=== PATIENT | male | born 1985 | race Caucasian/White ===

== ENCOUNTER 2023-06-09 17:42 | Inpatient (IN) ==
[2023-06-09] MEDS ORDERED: cloNIDine HCL 0.1 MG TAB PO ONE (18:17)
[2023-06-09] MEDS ORDERED: CEROVITE ADV FORMULA TAB PO STA (18:17)
[2023-06-09] MEDS ORDERED: THIAMINE HCL 100 MG, FOLIC ACID 1 MG in SODIUM CHLORIDE 0.9% 1000ML 1,000 ML IV STA (18:17)
[2023-06-09] MEDS ORDERED: ONDANSETRON INJ 2 MG/ML 2 ML VIAL IV STA (18:17)
[2023-06-09] MEDS ORDERED: PROMETHAZINE 12.5 MG/50.5 ML BAG IV STA (18:17)
[2023-06-09] MEDS ORDERED: SODIUM CHLORIDE 0.9% 1000ML 500 ML IV ONE (18:17)
--- NOTE | 2023-06-09 18:25 | Emergency Department Note ---
Impression & Plan Acute narcotic withdrawal, Leukocytosis, Acute dehydration ED Provider Note NAME: MINDY WAGNER AGE: 37 SEX: M : 1985 ARRIVES VIA: Ambulance INFORMANT: [Patient][ems] ED PROVIDER(S): [Jose Manuel Carson MD] CHIEF COMPLAINT: Detox request HISTORY OF PRESENT ILLNESS: The patient is a 37-year-old male with a history of heroin abuse. He has been using heroin almost daily for the last year. He last used 2 days ago and now feels he is suffering from some withdrawal. He has had body aching, nausea, he feels on edge. He is yawning. He has gone through withdrawal before. The patient feels dehydrated. He feels shaky. He would like some help with symptoms. There has been no cough or cold or congestion. No fever or chills. No urinary complaints. The patient states that he does have a history of high blood pressure but has not taken his medication in some time. The patient has been to rehab before, he was clean for 8 years but has relapsed. Of note, the patient does not want to be transferred to rehab today. He just wants help with his current symptoms. PMHx/PSHx: See Below SOCIAL HISTORY: See Below. PHYSICAL EXAM: GENERAL: Patient is in no acute distress. Yawning. HEENT: No acute trauma, normocephalic atraumatic, mucous membranes moist, no nasal congestion. NECK: No stridor, no adenopathy, no meningismus, trachea is midline. LUNGS: Clear to auscultation bilaterally, no wheeze, no rhonchi, breath sounds equal. HEART: Without murmurs gallops or rubs, regular rate and rhythm. ABDOMEN: Soft, nontender, bowel sounds positive, no peritonitis. EXTREMITIES: No cyanosis or edema, full range of motion of all the joints without pain or difficulty, no signs for acute trauma. NEUROLOGIC: Oriented x 3, no acute motor or sensory deficits, no focal weakness. SKIN: No rash, no jaundice, no diaphoresis. DIFFERENTIAL DIAGNOSIS: Narcotic withdrawal, dehydration, alcohol abuse, illicit drug abuse, renal or liver failure, UTI, among others. EMERGENCY DEPARTMENT COURSE/PROCEDURES: Prior/Outside records reviewed: EMS notes. ECG per my interpretation: Indication was withdrawal. The ECG shows a normal sinus rhythm with a rate of 78. There is no ST elevation, no PVCs. The QTc is 465. Continuous Cardiac Monitoring per my interpretation: An order was placed for continuous cardiac monitoring. The monitor shows a rate of 80 with normal sinus rhythm. MEDICAL DECISION MAKING: There is a mild leukocytosis, this could be consistent with the stress of his presentation or potentially infection. A very mild anemia was seen. Platelet count slightly elevated. No renal failure or significant electrolyte abnormality. No concerning liver enzyme elevation. TSH was low however, the T4 was normal. Alcohol level was undetectable. COVID test returned negative. ECG showed a normal sinus rhythm, no ischemia or dysrhythmia. On exam, the patient was yawning and complaining of body aches. He was suffering from narcotic withdrawal. The patient was given IV saline, 500 cc. He was given IV saline with multivitamins, thiamine and folate. He received IV Phenergan, IV Zofran, IV Toradol and IV Tylenol. He was given oral clonidine. He eventually was given a dose of IV Valium. The patient is still symptomatic and does not feel he can go home. He would like to stay in the hospital for his detox. This sounds reasonable given his presentation and the amount of medication it has taken to get him at least somewhat improved. I spoke with the patient and case management, the on-call hospitalist was consulted. DISPOSITION: Patient presentation and findings warrant a hospital stay. Past Med/Surg History Medical History Hypertension Narcotic abuse Social History Smoking Status: Current every day smoker Tobacco Type: Cigarettes Hx Substance Use: Yes Preferred Language: Uzbek Feels Safe at Home: Yes Allergies Allergies Allergy/AdvReac Type Severity Reaction Status Date / Time No Known Allergies Allergy Verified 06/09/23 18:28 Home Meds Home Medications Medication Instructions Recorded Confirmed zfyqlawbhb-EP-OY-acetaminophen 0 ml PO DIRECTED PRN Cold 06/09/23 06/09/23 6.25 mg-5 mg-10 mg-325mg/15mL oral Symptoms liqd (Vicks NyQuil Severe Cold-Flu) Results & Data (ED) Vital Signs Vital Signs - 24 hr 06/09/23 17:49 06/09/23 17:36 06/09/23 17:36 Pulse Rate 80 82 Pulse Rate from SpO2 Sensor Respiratory Rate 20 20 Blood Pressure 137/87 Blood Pressure Mean 103 Pulse Oximetry 97 100 Oxygen Delivery Method Room Air Sepsis Recent Fever Within 48 Hours No Sepsis New/Unexplained Change in Mental Status No Sepsis Action Taken by Nursing No Action Required 06/09/23 18:00 06/09/23 19:00 06/09/23 19:53 Pulse Rate 76 74 65 Pulse Rate from SpO2 Sensor 76 74 Respiratory Rate 33 H 22 16 Blood Pressure 137/87 147/88 H Blood Pressure Mean 103 107 Pulse Oximetry 99 98 Oxygen Delivery Method Sepsis Recent Fever Within 48 Hours Sepsis New/Unexplained Change in Mental Status Sepsis Action Taken by Nursing 06/09/23 20:00 06/09/23 20:11 06/09/23 21:59 Pulse Rate 72 59 L Pulse Rate from SpO2 Sensor Respiratory Rate Blood Pressure 152/95 H Blood Pressure Mean 117 Pulse Oximetry Oxygen Delivery Method Sepsis Recent Fever Within 48 Hours Sepsis New/Unexplained Change in Mental Status Sepsis Action Taken by Group Home Medications Current Medication List: was personally reviewed by me Laboratory Data Attestation: I reviewed the patient's lab results. 06/09/23 18:23 06/09/23 18:23 Lab Results 06/09/23 06/09/23 06/09/23 Range/Units 18:23 18:23 18:23 WBC 13.29 H (4.8-10.8) K/ul RBC 4.60 L (4.70-6.10) M/uL Hgb 13.8 L (14.0-18.0) g/dl Hct 40.6 L (42.0-52.0) % MCV 88.3 (80.0-100.0) fL MCH 30.0 (25.0-34.0) pg MCHC 34.0 (32.0-36.0) g/dL RDW Std Deviation 42.5 (36.4-46.3) fL RDW Coeff of Terri 13.1 (11.5-14.5) % Plt Count 440 H (130-400) K/uL MPV 9.4 (9.4-12.4) fL Immature Gran % (Auto) 0.2 % Neut % (Auto) 80.6 % Lymph % (Auto) 12.6 % [place] % (Auto) 5.9 % Eos % (Auto) 0.2 % Baso % (Auto) 0.5 % Neut # (Auto) 10.71 H (1.40-6.50) K/uL Lymph # (Auto) 1.68 (1.2-3.4) K/uL [place] # (Auto) 0.79 H (0.11-0.59) K/uL Eos # (Auto) 0.02 (0-0.50) K/uL Baso # (Auto) 0.06 (0-0.2) K/uL Immature Gran # (Auto) 0.03 (0.01-0.20) K/uL Sodium 142 (136-145) mmol/L Potassium 3.7 (3.5-5.1) mmol/L Chloride 107 (98-107) mmol/L Carbon Dioxide 25 (21-32) mmol/L Anion Gap 10 (3-11) BUN 9 (6-23) mg/dl Creatinine 0.78 (0.6-1.4) mg/dl Est Cr Clr Drug Dosing 129.7 ml/min Est GFR ( Amer) 133.7 ml/min Est GFR (Non-Af Amer) 115.3 ml/min BUN/Creatinine Ratio 11.5 (10-20) Glucose 78 (70-99(Fasting)) mg/dl Calcium 9.2 (8.6-10.3) mg/dl Magnesium 2.2 (1.7-2.4) mg/dl Total Bilirubin 0.5 (0.2-1.0) mg/dl AST 17 (13-39) U/L ALT 16 (7-52) U/L Alkaline Phosphatase 71 (34-104) U/L Total Protein 7.7 (6.0-8.3) gm/dl Albumin 4.5 (3.4-5.0) gm/dl Globulin 3.2 (2.5-4.0) gm/dl Albumin/Globulin Ratio 1.4 (0.9-2) TSH 0.256 L (0.300-4.500) uIu/ml Free T4 0.73 (0.61-1.60) ng/dl Ethyl Alcohol mg/dL (<10.0) mg/dl SARS-CoV-2, RNA, NAAT (NEGATIVE) 07/12/23 07/12/23 Range/Units 18:23 21:00 WBC (4.8-10.8) K/ul RBC (4.70-6.10) M/uL Hgb (14.0-18.0) g/dl Hct (42.0-52.0) % MCV (80.0-100.0) fL MCH (25.0-34.0) pg MCHC (32.0-36.0) g/dL RDW Std Deviation (36.4-46.3) fL RDW Coeff of Terri (11.5-14.5) % Plt Count (130-400) K/uL MPV (9.4-12.4) fL Immature Gran % (Auto) % Neut % (Auto) % Lymph % (Auto) % [place] % (Auto) % Eos % (Auto) % Baso % (Auto) % Neut # (Auto) (1.40-6.50) K/uL Lymph # (Auto) (1.2-3.4) K/uL [place] # (Auto) (0.11-0.59) K/uL Eos # (Auto) (0-0.50) K/uL Baso # (Auto) (0-0.2) K/uL Immature Gran # (Auto) (0.01-0.20) K/uL Sodium (136-145) mmol/L Potassium (3.5-5.1) mmol/L Chloride (98-107) mmol/L Carbon Dioxide (21-32) mmol/L Anion Gap (3-11) BUN (6-23) mg/dl Creatinine (0.6-1.4) mg/dl Est Cr Clr Drug Dosing ml/min Est GFR ( Amer) ml/min Est GFR (Non-Af Amer) ml/min BUN/Creatinine Ratio (10-20) Glucose (70-99(Fasting)) mg/dl Calcium (8.6-10.3) mg/dl Magnesium (1.7-2.4) mg/dl Total Bilirubin (0.2-1.0) mg/dl AST (13-39) U/L ALT (7-52) U/L Alkaline Phosphatase (34-104) U/L Total Protein (6.0-8.3) gm/dl Albumin (3.4-5.0) gm/dl Globulin (2.5-4.0) gm/dl Albumin/Globulin Ratio (0.9-2) TSH (0.300-4.500) uIu/ml Free T4 (0.61-1.60) ng/dl Ethyl Alcohol mg/dL < 10.0 (<10.0) mg/dl SARS-CoV-2, RNA, NAAT NEGATIVE (NEGATIVE) Administered Medications Discontinued Medications Clonidine HCl (Clonidine Hcl 0.1 Mg Tab) 0.2 mg PO NOW ONE Stop: 06/09/23 18:18 Last Admin: 06/09/23 19:11 Dose: 0.2 mg Documented By: YVETTE Diazepam (Diazepam 5 Mg/Ml Inj 10ml Vial) 5 mg IV NOW STA Stop: 06/09/23 20:46 Last Admin: 06/09/23 20:59 Dose: 5 mg Documented By: VANE Sodium Chloride (Nss 1000ml) 500 mls @ 999 mls/hr IV .Q31M ONE Stop: 06/09/23 18:47 Last Infusion: 06/09/23 20:20 Dose: 0 mls/hr Documented By: Admin: 06/09/23 19:09 Dose: 999 mls/hr Documented By: YVETTE Thiamine HCl 100 mg/ Folic (Acid 1 mg/ Sodium Chloride) 1,001.2 mls @ 500 mls/hr IV .Q2H1M STA; Protocol Stop: 06/09/23 20:17 Last Infusion: 06/09/23 22:08 Dose: 0 mls/hr Documented By: Admin: 06/09/23 19:24 Dose: 500 mls/hr Documented By: VANE Promethazine HCl (Phenergan) 12.5 mg in 50.5 mls @ 202 mls/hr IV NOW STA Stop: 06/09/23 18:31 Last Infusion: 06/09/23 19:32 Dose: 0 mls/hr Documented By: Admin: 06/09/23 19:10 Dose: 202 mls/hr Documented By: YVETTE Acetaminophen (Ofirmev) 1,000 mg in 100 mls @ 400 mls/hr IV NOW STA Stop: 06/09/23 20:59 Last Infusion: 06/09/23 22:07 Dose: 0 mls/hr Documented By: Admin: 06/09/23 21:00 Dose: 400 mls/hr Documented By: VANE Ketorolac Tromethamine (Ketorolac Tromethamine 15 Mg/Ml Vial) 15 mg IV NOW STA Stop: 06/09/23 20:46 Last Admin: 06/09/23 20:59 Dose: 15 mg Documented By: VANE Multivitamins/Minerals (Cerovite Adv Formula Tab) 1 tab PO ONE STA Stop: 06/09/23 18:18 Last Admin: 06/09/23 19:11 Dose: 1 tab Documented By: YVETTE Ondansetron HCl (Ondansetron Inj 2 Mg/Ml 2 Ml Vial) 4 mg IV NOW STA Stop: 06/09/23 18:18 Last Admin: 06/09/23 19:09 Dose: 4 mg Documented By: YVETTE Discharge Plan Visit Data Chief Complaint: Detox Request Stated Complaint: opiod withdrawl ED Provider: Jose Manuel Carson Discharge Problem: Acute narcotic withdrawal, Leukocytosis, Acute dehydration Patient Disposition: Admitted As Inpatient Condition: Fair Forms Stand Alone Forms: [facility], Suicide Prevention Resources Prescriptions Prescriptions: No Action Len Muñoz Severe Cold-Flu 6.25-5-10-325 mg/15 mL Liquid 0 ml PO DIRECTED PRN (Reason: Cold Symptoms) Rx Instructions: DOSE PER PKG INSTRUCTIONS Referrals Referrals: PCP,NO [Primary Care Provider] -
[2023-06-09 19:00] LABS: Albumin Globulin Ratio 1.4 (0.9-2); Albumin Level 4.5 gm/dl (3.4-5.0); BUN Creatinine Ratio 11.5 (10-20); Bilirubin,Total 0.5 mg/dl (0.2-1.0); Calcium 9.2 mg/dl (8.6-10.3); Creatinine Clr Calc Pharmacy 129.7 ml/min; Est GFR (African American) 133.7 ml/min; Est GFR (Non-African American) 115.3 ml/min; Globulin 3.2 gm/dl (2.5-4.0); Magnesium 2.2 mg/dl (1.7-2.4); Potassium 3.7 mmol/L (3.5-5.1); Total Protein 7.7 gm/dl (6.0-8.3)
[2023-06-09 19:01] LABS: Basophils # (auto) 0.06 K/uL (0-0.2); Basophils % (auto) 0.5 %; Eosinophils # (auto) 0.02 K/uL (0-0.50); Eosinophils % (auto) 0.2 %; Hematocrit (blood only) 40.6 % (42.0-52.0); Hemoglobin 13.8 g/dl (14.0-18.0); Immature Granulocytes # (auto) 0.03 K/uL (0.01-0.20); Immature Granulocytes % (auto) 0.2 %; Lymphocytes # (auto) 1.68 K/uL (1.2-3.4); Lymphocytes % (auto) 12.6 %; Mean Corpuscular Volume 88.3 fL (80.0-100.0); Mean Platelet Volume 9.4 fL (9.4-12.4); Monocytes # (auto) 0.79 K/uL (0.11-0.59); Monocytes % (auto) 5.9 %; Neutrophils # (auto) 10.71 K/uL (1.40-6.50); Neutrophils % (auto) 80.6 %; Platelet Count 440 K/uL (130-400); RDW Coefficient of Variation 13.1 % (11.5-14.5); RDW Standard Deviation 42.5 fL (36.4-46.3); White Blood Count 13.29 K/ul (4.8-10.8)
[2023-06-09 19:14] LABS: Thyroid Stimulating Hormone 0.256 uIu/ml (0.300-4.500)
[2023-06-09 19:48] LABS: T4 Free Thyroxine 0.73 ng/dl (0.61-1.60)
[2023-06-09] MEDS ORDERED: KETOROLAC TROMETHAMINE 15 MG/ML VIAL IV STA (20:45)
[2023-06-09] MEDS ORDERED: ACETAMINOPHEN 1,000 MG/100 ML VIAL IV STA (20:45)
--- NOTE | 2023-06-09 21:28 | History & Physical Report ---
Date of Service June 09, 2023 Assessment & Plan (1) Acute narcotic withdrawal: Plan: 37yo male IV heroine and Fentanyl user presenting with acute opioid withdrawal. Last used 2 days ago. -Admit to medical with telemetry -Limit stimulation - dark room, minimal interruptions as possible -PO Clonidine per protocol as needed -Lomotil as needed for symptom relief -Opiate verification panel -Pain management consult appreciated re: initiation of Suboxone. Difficult as patient does not reside in the area and does not follow with a PCP History of Present Illness Chief Complaint: acute opiate withdrawal Primary Care Provider: NO PCP Talha Jane is a 37yo male with history of HTN and opiate abuse presenting with acute opiate withdrawal. History limited as patient is somnolent after receiving Valium. He resides in the [facility]. Does not routinely follow with a physician. He has history of heroine use and is most recently using IV Fentanyl as well - "5 bags at at time" at least twice daily for the last year. Last use was 2 days ago. He presents in acute withdrawal - feels shaky, body aches, nausea. ER Course: NSS x 500mL Zofran Phenergan Banana bag Clonidine 0.2mmg Toradol 15mg Valium 5mg IV Tylenol 1gm Allergies Allergy/AdvReac Type Severity Reaction Status Date / Time No Known Allergies Allergy Verified 06/09/23 18:28 Home Medications Medication Instructions Recorded Confirmed Type hemdaqpext-WL-HM-acetaminophen 0 ml PO DIRECTED PRN Cold 06/09/23 06/09/23 History 6.25 mg-5 mg-10 mg-325mg/15mL oral Symptoms liqd (Vicks NyQuil Severe Cold-Flu) Past Med/Surg History Medical History Hypertension Narcotic abuse Social History Smoking Status: Current every day smoker Tobacco Type: Cigarettes Hx Substance Use: Yes Preferred Language: Swedish Feels Safe at Home: Yes Review of Systems Review of Systems: All systems reviewed & are unremarkable except as noted in HPI & below Physical Exam Physical Exam: General: patient somnolent, arousable, answers some questions the falls back asleep Skin: warm, dry, intact, no rashes or lesions HEENT: NC/AT, PERRL, EOMI, anicteric sclera, conjunctiva without injection, external ear normal to inspection and nontender, nares patent, moist mucus membranes, dentition intact, no oropharyngeal lesions, neck supple, trachea midline, no LAD, no thyromegaly, no JVD Heart: +S1/S2, regular, no m/r/g Lungs: equal air entry bilaterally, no rales/rhonchi/wheezes Abd: +BS, soft, NT/ND, no masses/organomegaly/ascites Ext: warm, 2+ pulses in UE/LE bilaterally, no clubbing/cyanosis or edema, surgical absence of digit on left hand. Left forearm injection site with no cellulitis or abscess Neuro: somnolent, arousable, moving all extremities with equal strength Results & Data Results & Data Vital Signs (Past 12 Hours) Vital Signs Pulse Resp BP Pulse Ox O2 Del Method 06/09/23 20:11 72 06/09/23 20:00 152/95 H 06/09/23 19:53 65 16 06/09/23 19:00 74 22 147/88 H 98 06/09/23 18:00 76 33 H 137/87 99 06/09/23 17:36 20 100 06/09/23 17:36 82 20 137/87 97 Room Air 06/09/23 17:49 80 Laboratory Results Laboratory Results WBC 13.29 K/ul (4.8-10.8) H 06/09/23 18:23 RBC 4.60 M/uL (4.70-6.10) L 06/09/23 18:23 Hgb 13.8 g/dl (14.0-18.0) L 06/09/23 18:23 Hct 40.6 % (42.0-52.0) L 06/09/23 18:23 MCV 88.3 fL (80.0-100.0) 06/09/23 18:23 MCH 30.0 pg (25.0-34.0) 06/09/23 18:23 MCHC 34.0 g/dL (32.0-36.0) 06/09/23 18:23 RDW Std Deviation 42.5 fL (36.4-46.3) 06/09/23 18: RDW Coeff of Terri 13.1 % (11.5-14.5) 06/09/23 18: Plt Count 440 K/uL (130-400) H 06/09/23 18: MPV 9.4 fL (9.4-12.4) 06/09/23 18: Immature Gran % (Auto) 0.2 % 06/09/23 18: Neut % (Auto) 80.6 % 06/09/23 18: Lymph % (Auto) 12.6 % 06/09/23 18: [place] % (Auto) 5.9 % 06/09/23 18: Eos % (Auto) 0.2 % 06/09/23 18: Baso % (Auto) 0.5 % 06/09/23 18: Neut # (Auto) 10.71 K/uL (1.40-6.50) H 06/09/23 18: Lymph # (Auto) 1.68 K/uL (1.2-3.4) 06/09/23 18: [place] # (Auto) 0.79 K/uL (0.11-0.59) H 06/09/23 18:23 Eos # (Auto) 0.02 K/uL (0-0.50) 06/09/23 18: Baso # (Auto) 0.06 K/uL (0-0.2) 06/09/23 18: Immature Gran # (Auto) 0.03 K/uL (0.01-0.20) 06/09/23 18: Sodium 142 mmol/L (136-145) 06/09/23 18: Potassium 3.7 mmol/L (3.5-5.1) 06/09/23 18: Chloride 107 mmol/L (98-107) 06/09/23 18: Carbon Dioxide 25 mmol/L (21-32) 06/09/23 18: Anion Gap 10 (3-11) 06/09/23 18: BUN 9 mg/dl (6-23) 06/09/23 18: Creatinine 0.78 mg/dl (0.6-1.4) 06/09/23 18: Est Cr Clr Drug Dosing 129.7 ml/min 06/09/23 18: Est GFR ( Amer) 133.7 ml/min 06/09/23 18: Est GFR (Non-Af Amer) 115.3 ml/min 06/09/23 18: BUN/Creatinine Ratio 11.5 (10-20) 06/09/23 18: Glucose 78 mg/dl (70-99(Fasting)) 06/09/23 18: Calcium 9.2 mg/dl (8.6-10.3) 06/09/23 18: Magnesium 2.2 mg/dl (1.7-2.4) 06/09/23 18: Total Bilirubin 0.5 mg/dl (0.2-1.0) 06/09/23 18: AST 17 U/L (13-39) 06/09/23 18: ALT 16 U/L (7-52) 06/09/23 18: Alkaline Phosphatase 71 U/L (34-104) 06/09/23 18: C-Reactive Protein < 0.50 mg/dl (0-0.5) 06/09/23 23: Total Protein 7.7 gm/dl (6.0-8.3) 06/09/23 18: Albumin 4.5 gm/dl (3.4-5.0) 06/09/23 18: Globulin 3.2 gm/dl (2.5-4.0) 06/09/23: Albumin/Globulin Ratio 1.4 (0.9-2) 06/09/23 18: Procalcitonin < 0.05 ng/ml (0-0.5) 06/09/23: TSH 0.256 uIu/ml (0.300-4.500) L 06/09/23: Free T4 0.73 ng/dl (0.61-1.60) 06/09/23 18: Urine Color Yellow 06/10/23 00:50 Urine Appearance Cloudy (Clear) A 06/10/23 00:50 Urine pH 7.0 (4.5-7.5) 06/10/23 00:50 Ur Specific [place] 1.026 (1.000-1.030) 06/10/23 00:50 Urine Protein Negative (Negative) 06/10/23 00:50 Urine Glucose (UA) Negative (Negative) 06/10/23 00:50 Urine Ketones Negative (Negative) 06/10/23 00:50 Urine Blood Negative (Negative) 06/10/23 00:50 Urine Nitrite Negative (Negative) 06/10/23 00:50 Urine Bilirubin Negative (Negative) 06/10/23 00:50 Urine Urobilinogen Negative (Negative) 06/10/23 00:50 Ur Leukocyte Esterase Trace (Negative) H 06/10/23 00:50 Urine WBC (Auto) 1-5 /hpf (0-5) 06/10/23 00:50 Urine RBC (Auto) 0-4 /hpf (0-4) 06/10/23 00:50 U Hyaline Cast (Auto) 1-5 /lpf (0-5) 06/10/23 00:50 U Epithel Cells (Auto) 0-5 /lpf (0-5) 06/10/23 00:50 Urine Bacteria (Auto) Negative (Negative) 06/10/23 00:50 Urine Opiates Screen Neg (Neg) 06/10/23 00:50 Ur Methadone, Qual Neg (Neg) 06/10/23 00:50 Urine Barbiturates Neg (Neg) 06/10/23 00:50 Ur Phencyclidine (PCP) Neg (Neg) 06/10/23 00:50 U Amphetamin/Meth Scrn Neg (Neg) 06/10/23 00:50 MDMA (Ecstasy) Screen Neg (Neg) 06/10/23 00:50 U Benzodiazepines Scrn Neg (Neg) 06/10/23 00:50 Ur Cocaine Metabolite Pos (Neg) H 06/10/23 00:50 U Marijuana (THC) Screen Pos (Neg) H 06/10/23 00:50 Ethyl Alcohol mg/dL < 10.0 mg/dl (<10.0) 06/09/23 18:23 SARS-CoV-2, RNA, NAAT NEGATIVE (NEGATIVE) 06/09/23 21:00 Diagnostic Findings X-ray hand ordered - pending formal read - ?free floating bone fragment at amputation site? PG Care Time/CCT Total # of Minutes Spent Total Time Spent with Patient: Total time spent is greater than 50% in coordination of care (as documented) at patient's floor/unit and/or counseling patient: Coding Level of Care Code 20590 INT INP/OBS CARE 2/55MIN Diagnoses Acute narcotic withdrawal F11.93
[2023-06-09] MEDS ORDERED: ONDANSETRON INJ 2 MG/ML 2 ML VIAL IV PRN (23:27)
[2023-06-09] MEDS ORDERED: DIPHENOXYLATE/ATROPINE 2.5/0.025MG TAB PO PRN (23:27)
[2023-06-10] MEDS: cloNIDine HCL 0.1 MG TAB PO PRN ×2 (00:29→02:30)
[2023-06-10 01:02] LABS: Appearance Urine Cloudy (Clear); Bacteria Urine Automated Negative (Negative); Bilirubin Urine Negative (Negative); Blood Urine Negative (Negative); Color Urine Yellow; Epithelial Cell Urine Auto 0-5 /lpf (0-5); Glucose Urine UA Negative (Negative); Ketones Urine Negative (Negative); Leukocyte Esterase Urine Trace (Negative); Nitrite Urine Negative (Negative); Protein Urine Negative (Negative); RBC Urine Automated 0-4 /hpf (0-4); Specific Gravity Urine 1.026 (1.000-1.030); Urobilinogen Urine Negative (Negative)
[2023-06-10 01:23] LABS: Amphetamines+Metham, Urine Neg (Neg); Barbiturates, Urine Neg (Neg); Benzodiazepine, Urine Neg (Neg); Cocaine, Urine Pos (Neg); MDMA (Ecstacy), Urine Neg (Neg); Methadone, Urine Neg (Neg); Opiate, Urine Neg (Neg); Phencyclidine, Urine Neg (Neg)
[2023-06-10] MEDS ORDERED: IBUPROFEN 600 MG TAB PO PRN (06:58)
--- NOTE | 2023-06-10 07:34 | XRay Report ---
XR hand LT min 3V routine CLINICAL HISTORY: pain TECHNIQUE: 3 views of the left hand were obtained. Comparison: None available at the time of this dictation. FINDINGS: Old deformity with absence of the second digit and atrophy of the second digit metatarsal. Joint spac es are well-preserved. No soft tissue abnormality is seen. IMPRESSION: Chronic deformity without evidence of acute abnormality. ACT 112: Negative or not required by law. Electronically signed by: Jules Nathan M.D. 06/10/2023 7:33 AM
[2023-06-10] MEDS: ACETAMINOPHEN 325 MG TAB PO PRN ×2 (08:16→14:50)
[2023-06-10] MEDS: cloNIDine HCL 0.1 MG TAB PO SCH ×4 (08:29→19:23)
[2023-06-10 09:40] LABS: Hematocrit (blood only) 37.5 % (42.0-52.0); Mean Corpuscular Hemoglobin 30.2 pg (25.0-34.0); Mean Corpuscular Hgb Conc 34.7 g/dL (32.0-36.0); Mean Corpuscular Volume 87.2 fL (80.0-100.0); Mean Platelet Volume 9.1 fL (9.4-12.4); Platelet Count 402 K/uL (130-400); RDW Coefficient of Variation 13.2 % (11.5-14.5); RDW Standard Deviation 42.3 fL (36.4-46.3); White Blood Count 11.56 K/ul (4.8-10.8)
[2023-06-10 09:55] LABS: BUN Creatinine Ratio 12.7 (10-20); Calcium 8.7 mg/dl (8.6-10.3); Creatinine Clr Calc Pharmacy 142.5 ml/min; Est GFR (African American) 138.9 ml/min; Est GFR (Non-African American) 119.9 ml/min; Potassium 3.9 mmol/L (3.5-5.1)
--- NOTE | 2023-06-10 12:19 | Electrocardiogram Report ---
Test Reason : Blood Pressure : / mmHG Vent. Rate : 078 BPM Atrial Rate : 078 BPM P-R Int : 132 ms QRS Dur : 082 ms QT Int : 408 ms P-R-T Axes : 039 035 050 degrees QTc Int : 465 ms Normal sinus rhythm Normal ECG No previous ECGs available Confirmed by Roby Diamond ([id number]) on 06/10/2023 12:19:21 PM Referred By: REFERRED SELF Confirmed By:Hesham Diamond
--- NOTE | 2023-06-10 12:34 | Hospitalist Progress Note ---
Date of Service June 10, 2023 Assessment & Plan (1) Acute narcotic withdrawal: Plan: History of IV drug abuse Fentanyl and heroin for 1 year several times daily Last use 06/07/2023 Patient expresses desire to stay clean and to connect back to a Suboxone clinic. Previously was followed at [facility] addiction center with Dr. Mota who reportedly retired several years ago Did offer infectious disease screening including HIV/hepatitis given history of IV drug abuse. Patient does decline this reports he had been tested and was negative and does not wish for retesting at this time. - Received diazepam 5mg x1 while in ER Continue clonidine protocol, max 1.2 mg total daily dose WBC 11.5 from 13, downtrending without abx. ?Reactive, no localized source of infection. BC pending - Have reached out to [facility] outpatient center to see what services are available and if he could reestablish with them/pursue Suboxone treatment. Suboxone/Subutex treatment is not administered or managed here. Pending callback from their institution. [facility] is also an option TSH low with a normal free T4 Urine positive for marijuana/cocaine metabolites. Opiate negative. (2) Leukocytosis: (3) Hypertension: Plan DVT prophylaxis: Low risk, SCDs/ambulate as tolerated Diet: Regular CDOE: Full Admission and Anticipated Discharge Date Admission Date: June 09, 2023 Subjective Shunt is seen at bedside this morning. He reports he has been through withdrawal before and was previously following with [facility] addiction clinic with Dr. Mota and had been on Suboxone. He does not have a PCP. He has been using heroin and IV fentanyl several times daily for at least a year. Reports that he last used heroin 2 days before his admission. He currently feels tremulous, and pain all over, nauseous, and "terrible ". He is pending morning clonidine. He is not endorsing any chest pressure. Denies shortness of breath but endorses feeling shaky. He feels sweaty, is not sure if he has a fever. He is interested in staying clean, and would like to connect back to an addiction clinic and services Did offer infectious disease screening including HIV/hepatitis given history of IV drug abuse. Patient does decline this reports he had been tested and was negative and does not wish for retesting at this time. Review of Systems Review of Systems: All systems reviewed & are unremarkable except as noted in Subjective Physical Exam Physical Exam: General: A&Ox3. HEENT: Atraumatic, normocephalic. Vision/hearing at Pulm: CTAB A&P. -wheezes, -rales, -rhonchi. Symmetrical chest rise. No increased work of breathing. No respiratory distress. Cardiac: RRR, -mrg. Radial pulses intact and symmetrical. Abdominal: Nontender, nondistended, soft. BS present. Extremities: Moving all extremities equally. Sensation intact in hands and feet bilaterally. No infected appearing track das, ulcerations or skin lesions. Slightly sweat Results & Data Results & Data Vital Signs (Past 12 Hours) Vital Signs Temp Pulse Pulse Pulse Resp BP Pulse Ox 06/10/23 11:45 36.8 C 56 L 18 166/91 H 97 06/10/23 08:39 36.6 C 66 18 151/81 H 98 06/10/23 07:37 64 06/10/23 03:04 36.7 C 57 L 16 159/90 H 97 06/10/23 03:04 Pulse Ox O2 Del Method O2 Del Method 06/10/23 11:45 Room Air 06/10/23 08:39 Room Air 06/10/23 07:37 06/10/23 03:04 Room Air 06/10/23 03:04 96 Room Air PG Care Time/CCT Total # of Minutes Spent Total Time Spent with Patient: Total time spent is greater than 50% in coordination of care (as documented) at patient's floor/unit and/or counseling patient: Coding Level of Care Code 62771 SUB INP/OBS CARE 2/35MIN Diagnoses Acute narcotic withdrawal F11.93 Leukocytosis D72.829 Leukocytosis type: unspecified Hypertension I10 (2) Leukocytosis Leukocytosis type: unspecified Qualified Code(s): D72.829 - Elevated white blood cell count, unspecified
[2023-06-10] MEDS ORDERED: NICOTINE 7 MG/24 HR TDSY TD SCH (20:00)
[2023-06-11] MEDS: cloNIDine HCL 0.1 MG TAB PO SCH (07:40)
--- NOTE | 2023-06-11 11:34 | Discharge Summary ---
Date of Service June 11, 2023 Admission HPI Per Admitting Provider Talha Jane is a 37yo male with history of HTN and opiate abuse presenting with acute opiate withdrawal. History limited as patient is somnolent after receiving Valium. He resides in the [facility]. Does not routinely follow with a physician. He has history of heroine use and is most recently using IV Fentanyl as well - "5 bags at at time" at least twice daily for the last year. Last use was 2 days ago. He presents in acute withdrawal - feels shaky, body aches, nausea. ER Course: NSS x 500mL Zofran Phenergan Banana bag Clonidine 0.2mmg Toradol 15mg Valium 5mg IV Tylenol 1gm Principal Diagnosis problem 1 Discharge Exam General: A&Ox3. HEENT: Atraumatic, normocephalic. Vision/hearing at Pulm: CTAB A&P. -wheezes, -rales, -rhonchi. Symmetrical chest rise. No increased work of breathing. No respiratory distress. Cardiac: RRR, -mrg. Radial pulses intact and symmetrical. Abdominal: Nontender, nondistended, soft. BS present. Extremities: Moving all extremities equally. Discharge Data Allergies Allergy/AdvReac Type Severity Reaction Status Date / Time No Known Allergies Allergy Verified 06/09/23 18:28 Consultations 06/09/23 20:47 ED Decision to Admit Stat Hospital Course (1) Acute narcotic withdrawal: History of IV drug abuse Fentanyl and heroin for 1 year several times daily Last use 06/07/2023 Patient expresses desire to stay clean and to connect back to a Suboxone clinic. Previously was followed at [facility] addiction center with Dr. Mota who reportedly retired several years ago Did offer infectious disease screening including HIV/hepatitis given history of IV drug abuse. Patient does decline this reports he had been tested and was negative and does not wish for retesting at this time. - Received diazepam 5mg x1 while in ER Continue clonidine protocol, max 1.2 mg total daily dose WBC 11.5 from 13, downtrending without abx. ?Reactive, no localized source of infection. BC pending - Have reached out to [facility] outpatient center to see what services are available and if he could reestablish with them/pursue Suboxone treatment. Suboxone/Subutex treatment is not administered or managed here. Pending callback from their institution. [facility] is also an option TSH low with a normal free T4 Urine positive for marijuana/cocaine metabolites. Opiate negative. On day of discharge: patient wants to leave AMA. Patient though has normal vitals, and is tolerating clonidine. will discharge hime on clonidiine taper. Patient did not want inpatient rehab. Patient will set up his own outpatient followup for rehab. Instructions noted below (2) Leukocytosis: (3) Hypertension: Total Time Total Time Spent Total Time Spent (In Minutes): 32 Discharge Plan Discharge Items Patient Disposition: Home - Self-Care Reason For Visit: ACUTE OPIOID WITHDRAWAL Discharge Diagnosis: acute opiod withdrawal Condition on Discharge: Fair Activity: Resume your previous activity Non-emergency contact: Primary Care Provider Call non-emergency contact if: you have any medication questions Follow-up/Referrals: PCP,NO [Primary Care Provider] - Diet: Regular Addtl Attending Provider Instructions: Patient will either followup at [facility] for Suboxone clinic and rehab or can follow up with [facility]. Patient refuses to go to inpatient rehab. Patient wants to be discharged and understands risks of continuing to use drugs. Clonidine will help with withdrawal symptoms. Taper instructions noted on prescription. Do not combine this medicine if you will continue taking heroin or other illicit drugs. Stop all other medications unless prescribed by a doctor overseeing your care. Pending Studies at Discharge: No Stand-Alone Forms: [facility]ar[facility], Smoking Cessation Medications and DC Order Prescriptions: New clonidine HCl 0.1 mg Tablet 0.1 mg PO QID Qty: 18 0RF Rx Instructions: take 4 times a day for 3 days. then take 3 times a day on day 4. then breakfast and bedtime on day 5. Then lunch on day 6. Discontinued Vicks NyQuil Severe Cold-Flu 6.25-5-10-325 mg/15 mL Liquid 0 ml PO DIRECTED PRN (Reason: Cold Symptoms) Rx Instructions: DOSE PER PKG INSTRUCTIONS Discharge Orders: Discharge Order (Routine); Ordered 06/11/23 Ordered By: Tee Rainey Admission Data Admit Date/Time: 06/09/23 21:28 Attending Provider: Tee Rainey Admit Provider: Radha Baez Primary Care Provider: PCP,NO Other Providers: Radha Baez Other Interventions: Discharge Summary Assessment (RN) Last Done: 06/11/23 11:40 Coding Level of Care Code 40453 INP/OBS DISCH >30 MIN Diagnoses Acute narcotic withdrawal F11.93 Leukocytosis D72.829 Leukocytosis type: unspecified Hypertension I10
[2023-06-13 13:16] LABS: Cocaine, Urine 3730 ng/mL (<100); Marijuana Quant, GCMS Urine 233 ng/mL (<5)
[2023-06-13 14:07] LABS: Codeine Urine NEGATIVE ng/mL (<50); Hydrocodone Urine NEGATIVE ng/mL (<50); Hydromor Urine NEGATIVE ng/mL (<50); Morphine Urine NEGATIVE ng/mL (<50); Norhydrocodone Conf Ur NEGATIVE ng/mL (<50); Noroxycodone Urine NEGATIVE ng/mL (<50); Oxycodone Urine NEGATIVE ng/mL (<50); Oxymorph Urine NEGATIVE ng/mL (<50)
== END 2023-06-11 12:45 | disposition home or self-care (01) | DRG 897 ==
LOC: ED 17:42 → EDINP 21:28 → SUATTDRO 21:28 → 2N 23:28
DX: I10 Essential (primary) hypertension; D64.9 Anemia, unspecified; E86.0 Dehydration; F11.23 Opioid dependence with withdrawal; F17.210 Nicotine dependence, cigarettes, uncomplicated